=== PATIENT | female | born 1995 | race Hispanic/Latino ===

== ENCOUNTER 2022-02-04 09:32 | Emergency (ER) | payer BC ==
[2022-02-04 10:34] LABS: #Eosinphils 0.3 10x3/uL (0.0-0.5); #Monocytes 0.8 10x3/uL (0.0-1.1); #Neutrophils 8.7 10x3/uL (1.5-8.4); %Basophils 0.2 % (0.0-2.0); %Lymphocytes 19.6 % (18.0-47.0); %Monocytes 6.6 % (0.0-10.0); %Neutrophils 71.1 % (40.0-75.0); Hemoglobin 12.3 g/dL (12.0-15.5); Mean Corpuscular HGB CONC 34.7 g/dL (32.0-36.0); Mean Corpuscular Hemoglobin 31.9 pg (27.0-33.0); Mean Corpuscular Volume 91.7 fl (81.6-98.3); Mean Platelet Volume 10.6 fl (7.4-10.4); Platelet Count 232 10x3/uL (150-450); RBC Distribution Width 12.7 % (11.5-14.5); Red Blood Cell (RBC) Count 3.86 10x6/uL (3.90-5.03); White Blood Cell (WBC) Count 12.3 10x3/uL (3.5-10.5)
[2022-02-04 10:38] LABS: Bilirubin Neg (Negative); Blood, Urine 150 (Negative); Clarity Clear (Clear); Glucose, Urine (Dipstick) Normal (Negative); Ketone, Urine Negative (Negative); Leukocyte Negative (Negative); Nitrite Negative (Negative); Protein, Urine (Dipstick) Negative (Neg-Trace); Specific Gravity, Urine 1.015 (1.002-1.036); Urobilinogen Normal mg/dL (Less than 2); pH, Urine 6.5 (5.0-9.0)
[2022-02-04 10:47] LABS: Bacteria/HPF 1+ HPF (None Seen); RBC/HPF 0-3 HPF (0-3); WBC/HPF 0-3 HPF (0-3)
[2022-02-04 10:48] LABS: Squamous Epithelial 0-3 HPF (0-3)
[2022-02-04] MEDS ORDERED: Acetaminophen 500 MG TAB ONE (11:47)
== END 2022-02-04 11:45 | disposition home or self-care (01) ==
LOC: CSHERS 09:32
DX: O20.9 Hemorrhage in early pregnancy, unspecified (principal); Z3A.14 14 weeks gestation of pregnancy
CPT/HCPCS: 36415; 76815; 81003; 81015; 84702; 85025; 86900; 86901

== ENCOUNTER 2022-06-03 05:48 | Day surgery (SDC) | payer BC ==
[2022-06-03 06:35] VITALS: BMI 37.5
[2022-06-03] MEDS ORDERED: hydrALAZINE 20 MG/ML VIAL SLOW IVP PRN (06:40)
[2022-06-03 06:52] LABS: Bilirubin Neg (Negative); Blood, Urine 250 (Negative); Clarity Cloudy (Clear); Glucose, Urine (Dipstick) Normal (Negative); Ketone, Urine Negative (Negative); Leukocyte 100 (Negative); Nitrite Negative (Negative); Protein, Urine (Dipstick) 15 mg/dl (Neg-Trace); Urobilinogen Normal mg/dL (Less than 2); pH, Urine 6.5 (5.0-9.0)
[2022-06-03 07:15] LABS: WBC/HPF 21-50 HPF (0-3)
[2022-06-03 07:16] LABS: Bacteria/HPF Rare-Few HPF (None Seen); Squamous Epithelial 0-3 HPF (0-3)
== END 2022-06-03 07:50 | disposition home or self-care (01) ==
LOC: CSHLD/OP 05:48
PROVIDERS: ATTEND Student in an Organized Health Care Education/Training Program
DX: O99.891 Other specified diseases and conditions complicating pregnancy (principal); M54.9 Dorsalgia, unspecified; Z79.82 Long term (current) use of aspirin; Z79.899 Other long term (current) drug therapy; Z3A.31 31 weeks gestation of pregnancy
CPT/HCPCS: 81001; 99283

== ENCOUNTER 2022-06-25 08:32 | Day surgery (SDC) | payer BC ==
[2022-06-25 09:15] VITALS: BMI 36.9
[2022-06-25] MEDS ORDERED: hydrALAZINE 20 MG/ML VIAL SLOW IVP PRN (09:43)
[2022-06-25] MEDS ORDERED: Lactated Ringer's 1,000 ML IV SCH (09:45)
[2022-06-25 11:06] LABS: Bilirubin Neg (Negative); Blood, Urine 250 (Negative); CAUTI Indications for Culture Acute Hematuria; Clarity Cloudy (Clear); Glucose, Urine (Dipstick) Normal (Negative); Ketone, Urine Negative (Negative); Leukocyte 25 (Negative); Nitrite Negative (Negative); Protein, Urine (Dipstick) 100 mg/dl (Neg-Trace); Urobilinogen Normal mg/dL (Less than 2)
[2022-06-25 11:08] LABS: Urine Culture Reflex No No
[2022-06-25 11:22] LABS: Bacteria/HPF None Seen HPF (None Seen); RBC/HPF Greater than 50 HPF (0-3); Squamous Epithelial None Seen HPF (0-3); WBC/HPF 0-3 HPF (0-3)
== END 2022-06-25 12:30 | disposition home or self-care (01) ==
LOC: CSHLD/OP 08:32
PROVIDERS: ATTEND Student in an Organized Health Care Education/Training Program
DX: O26.893 Other specified pregnancy related conditions, third trimester (principal); R10.9 Unspecified abdominal pain; O24.419 Gestational diabetes mellitus in pregnancy, unspecified control; Z87.440 Personal history of urinary (tract) infections; Z3A.34 34 weeks gestation of pregnancy
CPT/HCPCS: 76770; 81001; 96360; 96361; 99283

== ENCOUNTER 2022-07-19 15:48 | Day surgery (SDC) | payer BC ==
[2022-07-19 16:25] VITALS: BMI 39.1
[2022-07-19] MEDS ORDERED: hydrALAZINE 20 MG/ML VIAL SLOW IVP PRN (16:42)
[2022-07-19 17:02] LABS: Fetal Membranes Rupture No Membranes Rupture (No Rupture)
== END 2022-07-19 17:54 | disposition home health service (06) ==
LOC: CSHLD/OP 15:48
PROVIDERS: ATTEND Student in an Organized Health Care Education/Training Program
DX: Z03.71 Encounter for suspected problem with amniotic cavity and membrane ruled out (principal); O24.419 Gestational diabetes mellitus in pregnancy, unspecified control; Z3A.37 37 weeks gestation of pregnancy
CPT/HCPCS: 84112; 99283

== ENCOUNTER 2022-07-24 10:46 | Inpatient (IN) | payer BC ==
[2022-07-24] MEDS ORDERED: NS w/ Oxytocin 30 units 500 ML ONE (11:37)
[2022-07-24] MEDS ORDERED: Misoprostol 200 MCG TAB PR PRN (11:38)
[2022-07-24] MEDS ORDERED: hydrALAZINE 20 MG/ML VIAL SLOW IVP PRN (11:38)
[2022-07-24] MEDS ORDERED: Ibuprofen 800 MG TAB PO PRN (11:38)
[2022-07-24] MEDS ORDERED: Carboprost 250 MCG/ML AMP IM PRN (11:38)
[2022-07-24] MEDS ORDERED: Ondansetron PF 4 MG/2 ML Vial IVP PRN ×2 (11:38→14:54)
[2022-07-24] MEDS ORDERED: Promethazine HCl 25 MG/ML VIAL IM PRN ×2 (11:38→14:54)
[2022-07-24] MEDS ORDERED: Lidocaine 1% (PF) 30 ML VIAL SC PRN (11:38)
[2022-07-24] MEDS ORDERED: Tranexamic Acid 1,000 MG in Sodium Chloride 0.9% 250 ML 250 ML IVPB PRN (11:38)
[2022-07-24] MEDS ORDERED: Butorphanol Tartrate 1 MG/ML VIAL SLOW IVP PRN (11:38)
[2022-07-24] MEDS ORDERED: HYDROcodone/Acetaminophen 5/325 mg Tablet PO PRN (11:38)
[2022-07-24] MEDS ORDERED: Acetaminophen 500 MG TAB PO PRN (11:38)
[2022-07-24] MEDS ORDERED: Diphenoxylate HCl/Atropine Tablet PO PRN (11:38)
[2022-07-24] MEDS ORDERED: Methylergonovine 0.2 MG/ML VIAL IM PRN (11:38)
[2022-07-24] MEDS ORDERED: Lactated Ringer's 1,000 ML IV SCH (11:45)
[2022-07-24] MEDS ORDERED: NS w/ Oxytocin 30 units 500 ML IV SCH ×2 (11:45)
[2022-07-24 11:53] VITALS: BMI 38.7
[2022-07-24 12:25] LABS: Hemoglobin 12.2 g/dL (12.0-15.5); Mean Corpuscular HGB CONC 34.5 g/dL (32.0-36.0); Mean Corpuscular Hemoglobin 32.1 pg (27.0-33.0); Mean Corpuscular Volume 93.2 fl (81.6-98.3); Mean Platelet Volume 11.4 fl (7.4-10.4); Platelet Count 184 10x3/uL (150-450); RBC Distribution Width 14.1 % (11.5-14.5); White Blood Cell (WBC) Count 10.9 10x3/uL (3.5-10.5)
[2022-07-24 12:49] LABS: HBSAg Index 0.14 S/CO (0-0.99); Hep B Surf Ag Non-Reactive S/CO (NonReactive)
[2022-07-24 12:50] LABS: Syphilis Antibody Nonreactive (Nonreactive); Syphilis Antibody Index 0.04 S/CO (<1.00 Non-Reactive)
[2022-07-24 13:07] LABS: SARS-CoV-2 NAA Rapid Test Not Detected (NotDetected)
[2022-07-24] MEDS ORDERED: Fentanyl 2 mcg/Bup 0.1% Cadd 100 ML ONE (14:24)
[2022-07-24] MEDS ORDERED: Naloxone HCl 0.4 mg/ml Vial IVP PRN ×2 (14:54)
[2022-07-24] MEDS ORDERED: Acetaminophen 325 MG TAB PO PRN (14:54)
[2022-07-24] MEDS ORDERED: diphenhydrAMINE 50 MG/ML VIAL IVP PRN (14:54)
[2022-07-24] MEDS ORDERED: Moisturizing Cream (Eucerin) 113 GM JAR TOP PRN (14:54)
[2022-07-24] MEDS ORDERED: Lactated Ringer's 500 ML IV PRN (14:54)
[2022-07-24] MEDS ORDERED: ePHEDrine Sulfate 50 MG/10 ML VIAL SLOW IVP PRN (14:54)
[2022-07-24] MEDS ORDERED: Fentanyl 2 mcg/Bupivacaine 0.1% Cassette 100 ML EPIDURAL SCH (15:00)
[2022-07-24] MEDS ORDERED: Communication Order-Pharmacy FS SCH (15:00)
[2022-07-25] MEDS ORDERED: Bisacodyl 10 MG SUPP PR PRN (01:19)
[2022-07-25] MEDS ORDERED: Zolpidem Tartrate 5 MG TAB PO PRN (01:19)
[2022-07-25] MEDS ORDERED: Boostrix 0.5 ML (Tdap) VIAL (>/=7 yrs of age) IM ONE (01:19)
[2022-07-25] MEDS ORDERED: HYDROcodone/Acetaminophen 5/325 mg Tablet PO PRN (01:19)
[2022-07-25] MEDS ORDERED: Preparation H Ointment 28 GM TUBE PR PRN (01:19)
[2022-07-25] MEDS ORDERED: Ondansetron PF 4 MG/2 ML Vial IVP PRN (01:19)
[2022-07-25] MEDS ORDERED: diphenhydrAMINE 25 MG CAP PO PRN (01:19)
[2022-07-25] MEDS ORDERED: hydrALAZINE 20 MG/ML VIAL SLOW IVP PRN (01:19)
[2022-07-25] MEDS ORDERED: Lanolin Ointment 7 GM TUBE TOP PRN (01:19)
[2022-07-25] MEDS ORDERED: Promethazine HCl 25 MG/ML VIAL IM PRN (01:19)
[2022-07-25] MEDS ORDERED: Milk Of Magnesia 30 ML UDCUP PO PRN (01:19)
[2022-07-25] MEDS ORDERED: NS w/ Oxytocin 30 units 500 ML IV SCH (01:45)
[2022-07-25] MEDS: HYDROcodone/Acetaminophen 5/325 mg Tablet PO PRN ×2 (01:53→18:25)
[2022-07-25] MEDS: Benzocaine-Menthol 82.5 ML CAN TOP PRN ×2 (01:53→22:14)
[2022-07-25] MEDS: Ibuprofen 800 MG TAB PO SCH ×3 (06:30→22:08)
[2022-07-25] MEDS: Ferrous Sulfate 325 MG TAB PO SCH ×2 (08:15→16:51)
[2022-07-25] MEDS: Prenatal Vitamin 1 TAB PO SCH (08:59)
[2022-07-25] MEDS: Docusate 100 MG CAP PO SCH ×2 (08:59→22:08)
[2022-07-26] MEDS: HYDROcodone/Acetaminophen 5/325 mg Tablet PO PRN (04:50)
[2022-07-26] MEDS: Ibuprofen 800 MG TAB PO SCH (07:01)
[2022-07-26] MEDS: Ferrous Sulfate 325 MG TAB PO SCH (08:20)
[2022-07-26] MEDS: Prenatal Vitamin 1 TAB PO SCH (08:24)
[2022-07-26] MEDS: Docusate 100 MG CAP PO SCH (08:24)
[2022-07-26 09:35] VITALS: BP 124/77; TEMP 98
== END 2022-07-26 13:45 | disposition home or self-care (01) | DRG 807 ==
LOC: CSHLD 10:46 → CSHPED 07-25 01:05
PROVIDERS: ADMIT Student in an Organized Health Care Education/Training Program; ATTEND Student in an Organized Health Care Education/Training Program
PROC: 10D07Z6 Extraction of Products of Conception, Vacuum, Via Natural or Artificial Opening (ICD-10-PCS; principal; 2022-07-24)
PROC: 0W8NXZZ Division of Female Perineum, External Approach (ICD-10-PCS; 2022-07-24)
PROC: 10907ZC Drainage of Amniotic Fluid, Therapeutic from Products of Conception, Via Natural or Artificial Opening (ICD-10-PCS; 2022-07-24)
DX: O24.420 Gestational diabetes mellitus in childbirth, diet controlled (principal); Z37.0 Single live birth; O70.1 Second degree perineal laceration during delivery; Z3A.38 38 weeks gestation of pregnancy; Z20.822 Contact with and (suspected) exposure to COVID-19; O99.214 Obesity complicating childbirth; E66.01 Morbid (severe) obesity due to excess calories; Z79.899 Other long term (current) drug therapy; Z79.82 Long term (current) use of aspirin; O75.81 Maternal exhaustion complicating labor and delivery
CPT/HCPCS: 51702; 85027; 86780; 86850; 86900; 86901; 87340; 99285; J2405; J2590; U0002